=== PATIENT | male | born 1940 | race Caucasian/White ===

== ENCOUNTER → 2019-02-26 14:01 | Outpatient (CLI) | payer MEDICARE, SELFPAY ==
--- NOTE | 2019-02-26 | DI.RAD.S_ITS ---
PROCEDURE: XR CHEST 2V INDICATIONS: BRONCHITIS TECHNIQUE: 2 views of the chest were acquired. COMPARISON: [facility], , CHEST 2 VIEW, 01/22/2007, 9:43. FINDINGS: Surgical changes and devices: None. Lungs and pleura: Lungs are clear. No pleural effusions or pneumothorax. Mediastinum: Mediastinal contours are normal. Heart size is normal. Bones and chest wall: No suspicious bony abnormalities. Soft tissues appear unremarkable. IMPRESSION: No acute disease. No interval change. Dictated by: Henrry Morris M.D. on 02/26/2019 at 16:58 Approved by: Henrry Morris M.D. on 02/26/2019 at 16:59
== END ==
PROVIDERS: Visit Provider Family Medicine
DX: J40 Bronchitis, not specified as acute or chronic (principal)
CPT/HCPCS: 71046

== ENCOUNTER → 2021-04-18 10:33 | Outpatient (CLI) | payer MEDICARE, OTHER, SELFPAY ==
[2021-04-18 19:23] LABS: Add Manual Diff / Slide Review NO; Basophils Absolute Auto 0 /uL (0-100); Basophils Percent Auto 0.4 % (0-2); Eosinophils Absolute Auto 100 /uL (0-450); Hematocrit 38.2 % (41-53); Lymphocytes Absolute Auto 1200 /uL (1100-4500); Lymphocytes Percent Auto 20.3 % (25-40); Mean Corpuscular HGB Conc 33.9 % (30-36); Mean Corpuscular Volume 94.5 fL (80-100); Monocytes Absolute Auto 500 /uL (0-900); Neutrophils Absolute Auto 4200 /uL (1500-7000); Neutrophils Percent Auto 68.3 % (50-75); Platelet Count 175 X10^3/uL (150-400); Red Blood Cell Count 4.05 X10^6/uL (4.5-5.9); Red Cell Distribution Width 13.7 % (11.6-14.8); White Blood Cell Count 6.1 X10^3/uL (4.5-11.0)
== END ==
PROVIDERS: PCP Physician Assistant; Visit Provider Family Medicine
DX: D12.2 Benign neoplasm of ascending colon (principal)
CPT/HCPCS: 85025

== ENCOUNTER → 2021-05-02 11:33 | Outpatient (CLI) | payer MEDICARE, OTHER, SELFPAY ==
[2021-05-02 18:57] LABS: Add Manual Diff / Slide Review NO; Basophils Absolute Auto 0 /uL (0-100); Basophils Percent Auto 0.6 % (0-2); Eosinophils Absolute Auto 100 /uL (0-450); Eosinophils Percent Auto 2.5 % (2-4); Hematocrit 36.8 % (41-53); Hemoglobin 12.5 g/dL (13.5-17.5); Lymphocytes Absolute Auto 1200 /uL (1100-4500); Lymphocytes Percent Auto 23.2 % (25-40); Mean Corpuscular HGB Conc 34.1 % (30-36); Mean Corpuscular Hemoglobin 32.2 PG (26-34); Mean Corpuscular Volume 94.4 fL (80-100); Monocytes Absolute Auto 500 /uL (0-900); Monocytes Percent Auto 9.4 % (3-14); Neutrophils Absolute Auto 3300 /uL (1500-7000); Neutrophils Percent Auto 64.3 % (50-75); Platelet Count 151 X10^3/uL (150-400); Red Cell Distribution Width 13.5 % (11.6-14.8); White Blood Cell Count 5.2 X10^3/uL (4.5-11.0)
[2021-05-02 19:09] LABS: HEMOLYSIS < 15 (0-50); Iron 91 ug/dL (49-181)
[2021-05-02 19:22] LABS: Percent Iron Saturation 33 % (20-50); Total Iron Binding Capacity 273 ug/dL (261-462); Transferrin 212 mg/dL (206-381)
[2021-05-02 19:37] LABS: Ferritin 148 ng/mL (18-464)
[2021-05-02 19:51] LABS: Vitamin B12 346 pg/mL (239-931)
== END ==
PROVIDERS: PCP Physician Assistant; Referring Provider Family Medicine; Visit Provider Family Medicine
DX: D64.9 Anemia, unspecified (principal); D12.2 Benign neoplasm of ascending colon
CPT/HCPCS: 82607; 82728; 83540; 83550; 85025